=== PATIENT | female | born 1940 | race Caucasian/White ===

== ENCOUNTER 2016-07-13 11:15 | Emergency (ER) | payer OTHER ==
[~2016-07-13] VITALS: Ht 152.4 cm; Wt 67.6 kg
[~2016-07-13 11:15] MED LIST: ACETAMINOPHEN325 M1 PO; ACETYLCYST200 MG/1 M IH; AUGMENTIN 875875 M1 PO; BENZONATATE100 MG; CALCIUM 600 +1 EAC1 PO; CELEBREX 200 M200 MG; COLESTID1 GM PO; COZAAR100 MG PO; DEEP SEA NASAL44 M1 NS; DOXYCYCLINE 10100 M1; FLUNISOLIDE25 M1; FLUNISOLIDE25 M1 NS; HYDROCHLOROTHIA25 M1 PO; LIPITOR 10 MG10 M1 PO; MUCINEX600 MG PO; PREDNISONE 20 M20 M1 PO; PROTONIX40 M2 PO; PROVENTIL HFA6.7 G1 INH; SIMVASTATIN40 MG; SINGULAIR 10 MG10 M1 PO; SYMBICORT160 MCG/4. INH; TUSSIONEX PENN473 ML PO; VALTREX 500 MG500 MG PO
[2016-07-13 11:20] VITALS: BP 165/99
== END 2016-07-13 12:31 | disposition home or self-care (01) ==
LOC: ER 11:15
DX: S81.811A Laceration without foreign body, right lower leg, initial encounter (principal); K21.9 Gastro-esophageal reflux disease without esophagitis; J45.909 Unspecified asthma, uncomplicated; E78.00 Pure hypercholesterolemia, unspecified; I10 Essential (primary) hypertension; Z90.710 Acquired absence of both cervix and uterus; Z88.6 Allergy status to analgesic agent; Z88.1 Allergy status to other antibiotic agents; Z87.891 Personal history of nicotine dependence; W18.30XA Fall on same level, unspecified, initial encounter; Y93.89 Activity, other specified; Y92.89 Other specified places as the place of occurrence of the external cause; Y99.9 Unspecified external cause status

== ENCOUNTER 2017-05-05 13:57 | Inpatient (IN) | payer OTHER ==
[~2017-05-05] VITALS: Ht 154.9 cm; Wt 70.8 kg
--- NOTE | ~2017-05-05 | HC ---
[facility] [place] [address] CONSULTATION Name: THEO HARDY Room #: 431-P [facility] IN .R.#: [id number] Admission: 05/05/17 Attend Phys: Elbert Lee MD Discharge: Date of : 38 Report #: [id number] THIS REPORT FOR: //name// CC: Elbert Shields TYPE OF REPORT: Infectious diseases consultation. REASON FOR CONSULTATION: I was asked to evaluate concerning MRSA, lower respiratory tract infection and sinusitis. HISTORY OF PRESENT ILLNESS: The patient is a 76-year old with underlying hypertension, asthma, bronchiectasis and chronic sinus disease. One week ago, she developed upper respiratory tract infection symptoms with congestion and cough. The cough has persisted with yellow sputum production. No hemoptysis. No fever, chills or sweats. She was given azithromycin and prednisone without improvement. Hospitalized on 05/05/2017 for further treatment. She is now on Unasyn and Solu-Medrol. Her symptoms have improved significantly. Sputum culture reveals MRSA. Given a dose of vancomycin today. She still has sinus congestion, postnasal drip and purulent sputum production. She has had no travel. No other exposures. IMMUNIZATIONS: Up-to-date for pneumococcal and influenza vaccines. ALLERGIES: To QUINOLONES and ASPIRIN. MEDICATIONS: As noted on her MAR including the Unasyn. Now vancomycin and Solu-Medrol. PAST MEDICAL HISTORY: Gastroesophageal reflux, hiatal hernia repair, hysterectomy, cholecystectomy, bunionectomy, multiple sinus surgeries with nasal polyposis. Underlying asthma and bronchiectasis. Colonoscopy, hypertension and hyperlipidemia. FAMILY HISTORY: Noncontributory. SOCIAL HISTORY: She is a past smoker. No significant alcohol intake. REVIEW OF SYSTEMS: No GI or complaints. PHYSICAL EXAMINATION: VITAL SIGNS: She is afebrile, hemodynamically stable. GENERAL: She is alert and cooperative and pleasant with adequate oxygenation on room air. She had sinus congestion. HEENT: Otherwise, unremarkable. NECK: Supple. No adenopathy. LUNGS: Coarse breath sounds bilaterally. A lot of upper airway rhonchi. She [facility] [address] [place] [address] CONSULTATION Name: THEO HARDY Room #: 431-P [facility] IN ..#: [id number] Admission: 05/05/17 Attend Phys: Elbert Lee MD Discharge: Date of : 38 Report #: [id number] had loose cough with no sputum production. HEART: Regular. ABDOMEN: Soft and nontender. EXTREMITIES: A 1+ peripheral edema. LABORATORY STUDIES: Sodium 143, potassium 3.9, bicarbonate 30 and creatinine 0.9. Liver function test normal. BNP was 735. Hemoglobin 12.1; white count 14 and platelet count 267,000. Blood cultures are negative. Influenza antigen negative. Sputum culture, MRSA sensitive to Zyvox, rifampin, Bactrim, tetracycline, vancomycin and gentamicin. RADIOLOGICAL DATA: Chest x-ray was clear, although to my review, it appears that she does have some basilar changes predominantly on the right lower lobe. Previous imaging studies in 2011 included chronic sinusitis and a right greater than left basilar bronchiectasis and infiltrate. 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 IMPRESSION: Exacerbation of her sinusitis and bronchiectasis. Still may have some right lower lobe issue, although she is getting pulmonary hygiene. She is still having issues expectorating. Now, has growth of methicillin-resistant Staphylococcus aureus, which may well be contributing to her failure to clear this process. I would expect her sinuses, most likely are colonized leading to the lower respiratory tract infection. RECOMMENDATIONS: We will obtain CT scan of the sinuses and chest to further define her disease. Viral respiratory panel, AFB culture. Treat with Zyvox. If her AFB culture is negative, may also consider more aggressive treatment of her bronchiectasis with azithromycin. We have not identified any pseudomonas to date. We would like her sinuses cleared as best as possible to help prevent drainage and lower respiratory tract infection. <ELECTRONICALLY SIGNED> By: Trino Law MD 05/09/17 1108 1455 2130 Trino Law MD /nt
--- NOTE | ~2017-05-05 | EKG ---
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 HARDY : 1940 Requested By: Tony Milan Order Number: [id number] MD: Gabino Bernard Measurements Intervals [place] Rate: 93 P: 48 FL: 146 QRS: -42 QRSD: 96 T: 16 QT: 343 QTc: 427 Interpretive Statements Sinus rhythm Leftward axis Compared to ECG 11/25/2010 19:24:20 [place] has shifted leftward Electronically Signed On 05-06-2017 8:19:43 REAL TIME ANALYST by Gabino Bernard [email or web address] <ELECTRONICALLY SIGNED> By: Gabino Bernard MD, [facility] 05/06/17818 1450 145 Gabino Bernard MD, FAC /EPI
[2017-05-05 14:04] VITALS: BP 155/95
[2017-05-05 14:36] LABS: ABSOLUTE NEUTROPHILS 9.5 thou/uL (1.4-8.2); BASOPHILS 0.2 % (0.0-2.0); HEMATOCRIT 40.3 % (37.0-47.0); HEMOGLOBIN 13.6 gm/dL (12.0-15.0); LYMPHOCYTES 3.8 % (24.0-44.0); MCH 31.4 pg (26.0-34.0); MCHC 33.9 g/dL (28.0-37.0); MCV 92.6 fL (80.0-100.0); MONOCYTES 1.9 % (1.0-8.0); PLATELET COUNT 249 thou/uL (150-400); POLYS 94.1 % (36.0-66.0); RBC 4.35 mil/uL (4.20-5.00); RDW 14.6 % (10.5-14.5); WBC 10.1 thou/uL (4.0-11.0)
[2017-05-05 14:45] LABS: ANION GAP 11 mmol/L (7-16); BUN 15 mg/dL (7-18); CALCIUM 9.4 mg/dL (8.5-10.1); CHLORIDE 102 mmol/L (98-107); CO2 27 mmol/L (21-32); CREATININE 1.1 mg/dL (0.6-1.0); GLUCOSE 203 mg/dL (74-106); POTASSIUM 3.3 mmol/L (3.5-5.1); SODIUM 140 mmol/L (136-145)
[2017-05-05 14:50] LABS: BE(vivo) -1.7 mmol/L (-2 to +3); HCO3 22.1 mmol/L (22.0-26.0); PCO2 34.6 mmHg (35.0-45.0); PO2 60.2 mmHg (80.0-100.0); pH 7.423 (7.360-7.450); sO2 91.8 % (92.0-98.0)
[2017-05-05 14:53] LABS: ALBUMIN 3.6 g/dL (3.4-5.0); SGOT 16 U/L (15-37); SGPT 27 U/L (30-65); TOTAL BILIRUBIN 0.5 mg/dL (<0.1-1.0); TOTAL PROTEIN 7.4 g/dL (6.4-8.2); TROPONIN-I < 0.04 ng/mL (<0.06)
[2017-05-05] MEDS ORDERED: TRAZODONE HCL50 MG PO (15:47)
[2017-05-05] MEDS ORDERED: AMITRIPTYLINE H10 M3 PO (15:48)
[2017-05-05] MEDS ORDERED: ZYRTEC10 M5 PO (15:48)
[2017-05-05] MEDS ORDERED: EFFEXOR XR37.5 MG PO (15:49)
[2017-05-05] MEDS ORDERED: MOBIC7.5 MG PO (15:49)
[2017-05-05] MEDS ORDERED: TURMERIC538 MG PO (15:50)
[2017-05-05 17:42] VITALS: BP 155/95
[2017-05-05 18:20] VITALS: BP 141/86
[2017-05-05 23:55] VITALS: BP 174/82
[2017-05-06 03:26] VITALS: BP 146/77
[2017-05-06 05:17] LABS: HEMOGLOBIN 12.7 gm/dL (12.0-15.0); MCH 31.3 pg (26.0-34.0); MCHC 33.5 g/dL (28.0-37.0); MCV 93.6 fL (80.0-100.0); RBC 4.06 mil/uL (4.20-5.00); RDW 14.7 % (10.5-14.5); WBC 7.9 thou/uL (4.0-11.0)
[2017-05-06 05:22] LABS: CALCIUM 8.8 mg/dL (8.5-10.1); CREATININE 0.9 mg/dL (0.6-1.0); MAGNESIUM 2.1 mg/dL (1.8-2.4); POTASSIUM 3.4 mmol/L (3.5-5.1)
[2017-05-06 07:30] VITALS: BP 112/75
[2017-05-06 15:39] VITALS: BP 130/65
[2017-05-06 19:39] VITALS: BP 144/83
[2017-05-07 04:13] VITALS: BP 167/77; BP 169/77
[2017-05-07 06:31] LABS: HEMATOCRIT 36.7 % (37.0-47.0); HEMOGLOBIN 12.4 gm/dL (12.0-15.0); MCH 31.3 pg (26.0-34.0); MCHC 33.7 g/dL (28.0-37.0); MCV 92.9 fL (80.0-100.0); RBC 3.95 mil/uL (4.20-5.00); RDW 14.5 % (10.5-14.5); WBC 9.6 thou/uL (4.0-11.0)
[2017-05-07 06:52] LABS: CALCIUM 8.9 mg/dL (8.5-10.1); CREATININE 0.8 mg/dL (0.6-1.0); MAGNESIUM 2.2 mg/dL (1.8-2.4); POTASSIUM 3.9 mmol/L (3.5-5.1)
[2017-05-07 08:15] VITALS: BP 167/76
[2017-05-07 17:00] VITALS: BP 156/84
[2017-05-08 05:29] VITALS: BP 162/81
[2017-05-08 06:50] LABS: HEMATOCRIT 36.4 % (37.0-47.0); HEMOGLOBIN 12.1 gm/dL (12.0-15.0); MCH 30.8 pg (26.0-34.0); MCHC 33.2 g/dL (28.0-37.0); MCV 92.7 fL (80.0-100.0); RBC 3.92 mil/uL (4.20-5.00); RDW 14.1 % (10.5-14.5)
[2017-05-08 07:15] LABS: CALCIUM 9.2 mg/dL (8.5-10.1); CREATININE 0.9 mg/dL (0.6-1.0); MAGNESIUM 2.3 mg/dL (1.8-2.4); POTASSIUM 3.9 mmol/L (3.5-5.1)
[2017-05-08 08:00] VITALS: BP 175/84
[2017-05-08 15:00] VITALS: BP 176/97
[2017-05-08 21:25] VITALS: BP 154/94
[2017-05-09 05:14] VITALS: BP 169/97
[2017-05-09 05:53] LABS: HEMATOCRIT 38.3 % (37.0-47.0); HEMOGLOBIN 12.9 gm/dL (12.0-15.0); MCH 31.1 pg (26.0-34.0); MCHC 33.7 g/dL (28.0-37.0); MCV 92.2 fL (80.0-100.0); RBC 4.15 mil/uL (4.20-5.00); WBC 12.1 thou/uL (4.0-11.0)
[2017-05-09 06:14] LABS: CALCIUM 8.6 mg/dL (8.5-10.1); CREATININE 0.8 mg/dL (0.6-1.0); MAGNESIUM 2.2 mg/dL (1.8-2.4); POTASSIUM 3.6 mmol/L (3.5-5.1)
[2017-05-09 08:45] VITALS: BP 154/86
[2017-05-09 16:30] VITALS: BP 146/78
[2017-05-09 20:54] VITALS: BP 155/95
[2017-05-09 23:07] LABS: IgA 51 mg/dL (64-422); IgG 534 mg/dL (700-1600); IgM 570 mg/dL (26-217)
[2017-05-10 05:21] LABS: CALCIUM 8.6 mg/dL (8.5-10.1); CREATININE 0.9 mg/dL (0.6-1.0); POTASSIUM 4.1 mmol/L (3.5-5.1)
[2017-05-10 05:25] VITALS: BP 139/68
[2017-05-10 05:28] LABS: HEMATOCRIT 38.4 % (37.0-47.0); HEMOGLOBIN 12.9 gm/dL (12.0-15.0); MCH 31.3 pg (26.0-34.0); MCHC 33.6 g/dL (28.0-37.0); MCV 93.2 fL (80.0-100.0); RBC 4.12 mil/uL (4.20-5.00); RDW 14.2 % (10.5-14.5); WBC 9.6 thou/uL (4.0-11.0)
[2017-05-10 07:43] VITALS: BP 153/96
[2017-05-10] MEDS ORDERED: PREDNISONE 20 M20 MG PO ×2 (11:43→16:00)
[2017-05-10] MEDS ORDERED: NORVASC10 MG PO (14:14)
[2017-05-10] MEDS ORDERED: LINEZOLID600 MG PO ×2 (14:14→16:00)
[2017-05-10 15:18] VITALS: BP 151/85
[2017-05-10 16:08] VITALS: BP 151/85
[2017-05-11 00:09] LABS: ADENOVIRUS Negative (Negative); INFLUENZA A Negative (Negative); INFLUENZA B Negative (Negative); METAPNEUMOVIRUS Positive (Negative); PARAINFLUENZA 1 Negative (Negative); PARAINFLUENZA 2 Negative (Negative); PARAINFLUENZA 3 Negative (Negative); RHINOVIRUS Negative (Negative); RSV A Negative (Negative); RSV B Negative (Negative)
== END 2017-05-10 16:36 | disposition home or self-care (01) | DRG 177 ==
LOC: ER 13:57 → EROBS 15:34 → 4E 15:34
PROVIDERS: Hospitalist; Internal Medicine; Physician Assistant; Specialist
DX: J15.212 Pneumonia due to Methicillin resistant Staphylococcus aureus (principal); J96.01 Acute respiratory failure with hypoxia; N17.9 Acute kidney failure, unspecified; J47.1 Bronchiectasis with (acute) exacerbation; J45.901 Unspecified asthma with (acute) exacerbation; J32.1 Chronic frontal sinusitis; I10 Essential (primary) hypertension; E78.00 Pure hypercholesterolemia, unspecified; E87.6 Hypokalemia; K21.9 Gastro-esophageal reflux disease without esophagitis; Z87.891 Personal history of nicotine dependence; Z90.49 Acquired absence of other specified parts of digestive tract; Z90.710 Acquired absence of both cervix and uterus; Z98.42 Cataract extraction status, left eye; Z98.41 Cataract extraction status, right eye; Z79.899 Other long term (current) drug therapy; Z88.6 Allergy status to analgesic agent; Z88.1 Allergy status to other antibiotic agents; Z88.8 Allergy status to other drugs, medicaments and biological substances
CPT/HCPCS: 10183

== ENCOUNTER → 2017-08-15 | Outpatient (CLI) | payer OTHER ==
[~2017-08-15] MED LIST changes: +AMITRIPTYLINE H10 M3 PO; +EFFEXOR XR37.5 MG PO; +LINEZOLID600 MG PO; +MOBIC7.5 MG PO; +NORVASC10 MG PO; +PREDNISONE 20 M20 MG PO; +TRAZODONE HCL50 MG PO; +TURMERIC538 MG PO; +ZYRTEC10 M5 PO
--- NOTE | ~2017-08-15 | 2DMMODE ---
[facility] [place] [address] 2 D/M-MODE ECHOCARDIOGRAM Name: THEO HARDY Room #: REG CL Ayden#: [id number] Admission: 08/15/17 Attend Phys: Truman Miller Discharge: Date of : 38 Date of Service: 08/15/17 1438 Report #: [id number] THIS REPORT FOR: //name// APPROVED REPORT Study performed: 08/15/2017 13:05:54 EXAM: Comprehensive 2D, Doppler, and color-flow Echocardiogram Patient Location: Out-Patient Status: routine BSA: 1.63 HR: 75 bpm BP: 160/89 mmHg Rhythm: NSR Other Information Study Quality: Good Indications Dyspnea Hx: COPD, HTN, HLD 2D Dimensions RVDd: 37.05 mm LVEF(%): 54.81 (>50%) IVSd: 10.77 (7-11mm) LVOT Diam: 21.63 (18-24mm) LVDd: 34.97 mm PWd: 10.46 (7-11mm) Ascending Ao: 31.33 (22-36mm) LVDs: 25.28 (25-40mm) Aortic Root: 27.43 mm IVC: 11.00 mm TAPSE: 1.80 (<1.7) Knight's LVEF: 54.81 % Volumes Left Atrial Volume (Systole) Single Plane 4CH: 37.40 mL Single Plane 2CH: 44.79 mL LA ESV Index: 27.00 mL/m2 Aortic Valve AoV Peak Porfirio.: 1.04 m/s AO Peak Gr.: 4.32 mmHg LVOT Max P.14 mmHg LVOT Max V: 0.89 m/s HARIS Vmax: 3.13 cm2 Mitral Valve [facility] [place] [address] 2 D/M-MODE ECHOCARDIOGRAM Name: THEO HARDY Room #: [facility]#: [id number] Admission: 08/15/17 Attend Phys: Truman Miller Discharge: Date of : 38 Date of Service: 08/15/17 1438 Report #: [id number] E/A Ratio: 0.8 MV Decel. Time: 267.82 ms MV E Max Porfirio.: 0.71 m/s MV A Porfriio.: 0.86 m/s MV PHT: 77.67 ms IVRT: 87.66 ms Pulmonary Valve PV Peak Porfirio.: 1.02 m/s PV Peak Gr.: 4.18 mmHg Pulmonary Vein P Vein S: 0.60 m/s P Vein A: 0.22 m/s P Vein D: 0.47 m/s P Vein A Dur.: 106.1 msec P Vein S/D Ratio: 1.28 Tricuspid Valve RAP Estimate: 5.00 mmHg Left Ventricle The left ventricle is normal size. There is normal left ventricular wall thickness. The left ventricular systolic function is normal. LVEF is 55-60%. Mild diastolic dysfunction is present (impaired relaxation pattern). Right Ventricle The right ventricle is normal size. The right ventricular systolic function is normal. Atria The left atrium size is normal. The right atrium size is normal. Aortic Valve The Aortic valve is mildly sclerotic. No aortic regurgitation is present. There is no aortic valvular stenosis. Mitral Valve The mitral valve is normal in structure. Trace mitral regurgitation. No evidence of mitral valve stenosis. Tricuspid Valve The tricuspid valve is normal in structure. Trace tricuspid regurgitation. Unable to assess PA pressure. Pulmonic Valve The pulmonary valve is normal in structure. Trace pulmonic [facility] [address] [place] [address] 2 D/M-MODE ECHOCARDIOGRAM Name: THEO HARDY Room #: REG CL Chidi#: [id number] Admission: 08/15/17 Attend Phys: Truman Miller Discharge: Date of : 38 Date of Service: 08/15/17 1438 Report #: [id number] regurgitation. Great Vessels The aortic root is normal in size. The ascending aorta is normal in size. IVC is normal in size and collapses >50% with inspiration. Pericardium Prominent anterior epicardial fat pad is present. <Conclusion> The left ventricle is normal size. LVEF is 55-60%. The Aortic valve is mildly sclerotic. No aortic regurgitation is present. There is no aortic valvular stenosis. The mitral valve is normal in structure. Trace mitral regurgitation. The tricuspid valve is normal in structure. Trace tricuspid regurgitation. Unable to assess PA pressure. The pulmonary valve is normal in structure. Trace pulmonic regurgitation. Prominent anterior epicardial fat pad is present. <ELECTRONICALLY SIGNED> By: Kristofer Calhoun MD 08/15/17 1438 1438 1438 Kristofer Calhoun MD /INF
[2017-08-15 12:56] LABS: ABSOLUTE NEUTROPHILS 3.8 thou/uL (1.4-8.2); BASOPHILS 0.9 % (0.0-2.0); EOSINOPHILS 6.7 % (0.0-3.0); HEMATOCRIT 37.6 % (37.0-47.0); HEMOGLOBIN 12.7 gm/dL (12.0-15.0); LYMPHOCYTES 24.5 % (24.0-44.0); MCH 31.3 pg (26.0-34.0); MCHC 33.6 g/dL (28.0-37.0); MCV 93.1 fL (80.0-100.0); MONOCYTES 7.3 % (1.0-8.0); PLATELET COUNT 239 thou/uL (150-400); POLYS 60.6 % (36.0-66.0); RBC 4.04 mil/uL (4.20-5.00); RDW 14.1 % (10.5-14.5); WBC 6.3 thou/uL (4.0-11.0)
[2017-08-15 13:11] LABS: ALBUMIN 3.6 g/dL (3.4-5.0); CALCIUM 9.3 mg/dL (8.5-10.1); CREATININE 0.8 mg/dL (0.6-1.0); MAGNESIUM 1.9 mg/dL (1.8-2.4); POTASSIUM 3.6 mmol/L (3.5-5.1); TOTAL BILIRUBIN 0.4 mg/dL (<0.1-1.0); TOTAL PROTEIN 6.6 g/dL (6.4-8.2)
[2017-08-15 21:08] LABS: IgG 474 mg/dL (700-1600); IgM 533 mg/dL (26-217)
[2017-08-15 22:11] LABS: IgA 29 mg/dL (64-422)
[2017-08-19 14:09] LABS: ALTERNARIA <0.10 kU/L (Class 0); ASPERGILLUS IGE <0.10 kU/L (Class 0); BERMUDA GRASS <0.10 kU/L (Class 0); BOXELDER/MAPLE <0.10 kU/L (Class 0); CLADOSPORIUM <0.10 kU/L (Class 0); COCKROACH <0.10 kU/L (Class 0); COTTONWOOD <0.10 kU/L (Class 0); D. FARINAE <0.10 kU/L (Class 0); D. PTERONYSSINUS <0.10 kU/L (Class 0); DOG DANDER <0.10 kU/L (Class 0); ELM <0.10 kU/L (Class 0); IgE-ALLERGY PROFILE 120 IU/mL (0-100); MOUNTAIN CEDAR <0.10 kU/L (Class 0); MULBERRY IGE <0.10 kU/L (Class 0); NETTLE IGE <0.10 kU/L (Class 0); OAK <0.10 kU/L (Class 0); PENICILLIUM NOTATUM <0.10 kU/L (Class 0); RUSSIAN THISTLE IGE <0.10 kU/L (Class 0); SHEEP SORREL IGE <0.10 kU/L (Class 0); SHORT RAGWEED <0.10 kU/L (Class 0); TIMOTHY IGE <0.10 kU/L (Class 0); WHITE ASH IGE <0.10 kU/L (Class 0)
== END ==
LOC: CV 09:04
PROVIDERS: Internal Medicine Pulmonary Disease
DX: I27.20 Pulmonary hypertension, unspecified (principal); E65 Localized adiposity; J45.909 Unspecified asthma, uncomplicated; J44.9 Chronic obstructive pulmonary disease, unspecified; E78.5 Hyperlipidemia, unspecified

== ENCOUNTER → 2018-01-17 | Outpatient (CLI) | payer OTHER | LOC: MRI 01-13 14:42 | DX: J47.9 Bronchiectasis, uncomplicated (principal); I25.10 Atherosclerotic heart disease of native coronary artery without angina pectoris; K44.9 Diaphragmatic hernia without obstruction or gangrene; J45.909 Unspecified asthma, uncomplicated; E78.5 Hyperlipidemia, unspecified; Z87.891 Personal history of nicotine dependence ==

== ENCOUNTER → 2018-04-16 | Outpatient (CLI) | payer OTHER | LOC: RAD 08:59 | DX: J84.10 Pulmonary fibrosis, unspecified (principal); J98.4 Other disorders of lung ==

== ENCOUNTER → 2018-09-04 | Outpatient (CLI) | payer OTHER | LOC: MRI 11:49 | DX: M48.061 Spinal stenosis, lumbar region without neurogenic claudication (principal); M51.26 Other intervertebral disc displacement, lumbar region; M47.816 Spondylosis without myelopathy or radiculopathy, lumbar region; M43.8X6 Other specified deforming dorsopathies, lumbar region; M25.78 Osteophyte, vertebrae ==

== ENCOUNTER 2019-03-04 10:52 | Emergency (ER) | payer OTHER ==
[~2019-03-04] VITALS: Ht 149.9 cm; Wt 59.0 kg
[2019-03-04 13:12] VITALS: BP 185/82
--- NOTE | 2019-03-06 12:47 | EKG ---
[address] [place] [address] ELECTROCARDIOGRAM REPORT Name: THEO HARDY [id number] Admission: 03/04/19 Attend Phys: Discharge: 03/04/19 Date of : 38 Report #: [id number] THIS REPORT FOR: //name// [facility] ED Test Date: 2019-03-04 Test Time: 11:02:03 Pat Name: THEO HARDY Department: Room: Gender: F [employer] Sales Representative: ESTIVEN : 1940 Requested By: Nina Keller Order Number: [id number] MD: Gabino Bernard Measurements Intervals [place] Rate: 79 P: 78 CT: 154 QRS: 0 QRSD: 96 T: 56 QT: 390 QTc: 448 Interpretive Statements Sinus rhythm Possible anteroseptal infarct, old Compared to ECG 05/05/2017 14:50:26 Myocardial infarct finding now present Left-axis deviation no longer present Electronically Signed On 03-06-2019 12:46:57 OFFSET LABEL REWINDER by Gabino Bernard [email or web address] <ELECTRONICALLY SIGNED> By: Gabino Bernard MD, [facility] 03/06/19 1246 01 01 Gabino Bernard MD, FAC /EPI
== END 2019-03-04 13:13 | disposition home or self-care (01) ==
LOC: ER 10:52
DX: S01.81XA Laceration without foreign body of other part of head, initial encounter (principal); S01.511A Laceration without foreign body of lip, initial encounter; S60.221A Contusion of right hand, initial encounter; I10 Essential (primary) hypertension; E78.00 Pure hypercholesterolemia, unspecified; J45.909 Unspecified asthma, uncomplicated; K21.9 Gastro-esophageal reflux disease without esophagitis; Z90.710 Acquired absence of both cervix and uterus; Z90.49 Acquired absence of other specified parts of digestive tract; Z87.891 Personal history of nicotine dependence; Z88.1 Allergy status to other antibiotic agents; Z88.6 Allergy status to analgesic agent; W01.0XXA Fall on same level from slipping, tripping and stumbling without subsequent striking against object, initial encounter; Y93.89 Activity, other specified; Y92.481 Parking lot as the place of occurrence of the external cause; Y99.8 Other external cause status

== ENCOUNTER → 2019-03-04 | Outpatient (CLI) | payer OTHER | LOC: CAT 13:51 | DX: J47.1 Bronchiectasis with (acute) exacerbation (principal); K44.9 Diaphragmatic hernia without obstruction or gangrene; Z90.49 Acquired absence of other specified parts of digestive tract; M47.816 Spondylosis without myelopathy or radiculopathy, lumbar region; I31.3 Pericardial effusion (noninflammatory) ==